=== PATIENT | male | born 1980 | race Caucasian/White ===

== ENCOUNTER 2017-03-13 09:00 | Inpatient (IN) | payer OTHER ==
--- NOTE | ~2017-03-13 | PN ---
Unit #: [id number] #: [id number] Patient: BRIANDA DEJESUS [id number] [facility] [address] [place] [address] [id number] I MR#: [id number] NAME: BRIANDA DEJESUS. ROOM: P177 Age: 36 Sex: M Admission Date: 03/13/2017 : 1980 Attending Physician: Yulia Caldwell M.D. Admitting Physician: Yulia Caldwell M.D. Primary Care Physician: Deann Doctor Not In System [facility] PROGRESS NOTES DATE OF SERVICE: 03/14/2017 SUBJECTIVE Mr. Dejesus is a 36-year-old white male who was seen today and chart was reviewed and case was discussed with the staff. He has been anxious, withdrawn, and rather seclusive to himself. Meanwhile, he has been cooperative with treatment recommendations and has been taking the medications and tolerating them fairly well with no reported side effects. MENTAL STATUS EXAMINATION Young white male who was casually dressed with fair personal hygiene, appears to be in distress and discomfort. He was awake and alert with impaired attention and concentration. His mood was anxious with a congruent affect. He denies any suicidal or homicidal ideations. His insight and judgment remain slightly impaired. TREATMENT PLAN 1. We will continue him on his current treatment protocol. We will monitor his response to the medications and make further adjustments as needed. 2. We will continue to follow up. Dictated by... Ana Alamo/cristy TD: 03/14/2017 22:18 JOB #: [id number] [facility] PROGRESS NOTES Page 1 of 1 X Yulia Caldwell MD PROGRESS NOTE
--- NOTE | ~2017-03-13 | PN ---
Unit #: [id number] #: [id number] Patient: BRIANDA DEJESUS [id number] [facility] [address] [place] [address] [id number] I MR#: [id number] NAME: BRIANDA DEJESUS ROOM: P1 Age: 36 Sex: M Admission Date: 03/13/2017 : 1980 Attending Physician: Yulia Caldwell M.D. Admitting Physician: Yulia Caldwell M.D. Primary Care Physician: Generic Doctor Not In System [facility] PROGRESS NOTES DATE 03/13/2017 DISCUSSION Mr. Dejesus is a 36-year-old white male with substance abuse and mood disorder who was seen today and chart was (1) case was discussed with the staff. He was seen to be anxious, withdrawn, in no distress or discomfort. Dictated by... Ana Alamo/jenna TD: 03/14/2017 23:06 JOB #: [id number] [facility] PROGRESS NOTES Page 1 of 1 X Yulia Caldwell MD PROGRESS NOTE
--- NOTE | ~2017-03-13 | HP ---
Unit #: [id number] #: [id number] Patient: BRIANDA DEJESUS [id number] [facility] [place] [address] [id number] MR#: [id number] NAME: BRIANDA DEJESUS. ROOM: [facility] Age: 36 Sex: M Admission Date: 03/13/2017 : 1980 Attending Physician: Yulia Caldwell M.D. Admitting Physician: Yulia Caldwell M.D. Primary Care Physician: Generic Doctor Not In System HISTORY AND PHYSICAL HISTORY OF PRESENT ILLNESS Brianda is a 89 year old admitted to [facility] because of his opioid abuse. PAST MEDICAL HISTORY 1. Long history of opioid abuse to include snorting heroin and Suboxone. 2. Asthma. PAST SURGICAL HISTORY Nothing reported. ALLERGIES Klonopin, lactose, Cipro. SOCIAL HISTORY Smokes one pack per day. Drinks alcohol on occasion has a history of poly illicit substance abuse. FAMILY HISTORY Medically noncontributory. REVIEW OF SYSTEMS CONSTITUTIONAL: No fever or chills. HEENT: Denies any sore throat, ear pain or runny nose. CARDIOVASCULAR: Denies chest pain, irregular heart rhythm or palpitations. CHEST: Denies shortness of breath or cough. No hemoptysis. GASTROINTESTINAL: Denies nausea, vomiting, diarrhea or chronic constipation. ENDOCRINE: Denies history of increased thirst or urination. No recent significant weight loss or gain. GENITOURINARY: Denies dysuria, frequency, or hematuria. SKIN: Denies any rashes. HEMATOLOGIC: Denies history of increased bleeding or bruising. MUSCULOSKELETAL: Denies any hot, swollen joints. No generalized muscle pain. NEUROLOGIC: Denies problems with vision or speech. No frequent, severe headaches. No numbness, tingling or weakness in any extremities. Denies loss of bladder or bowel control. CURRENT MEDICATIONS Detox protocol PHYSICAL EXAMINATION Unit #: [id number] #: [id number] Patient: BRIANDA DEJESUS GENERAL: Alert, well-nourished, in no apparent distress. VITAL SIGNS: Blood pressure 110/66, heart rate 88, respirations 16, temperature 98.6. WEIGHT: 165 pounds. HEIGHT: 5'8". SKIN: Warm and dry without rash or lesion. HEENT: Normocephalic. TMs not viewed. Oral and nasal passages clear. Conjunctivae clear. Pupils equal, round and reactive to light and accommodation. Extraocular movements intact. NECK: Supple without lymphadenopathy or thyromegaly. HEART: Regular rate and rhythm without murmur. LUNGS: Clear. ABDOMEN: Soft, nontender. : Not done. EXTREMITIES: No evidence of cyanosis, clubbing or edema. Moves all extremities without focal deficit. NEUROLOGICAL: Grossly within normal limits. Cranial Nerves: II: Visual kidd are intact. III, IV AND : Extraocular movements are intact. Pupils are equal, round and reactive to light. V: Facial sensation is grossly normal. VII: Facial movements and expression are normal. VIII: Auditory acuity grossly intact. IX, X: Uvula is midline. Phonation is normal. XI: Patient shrugs shoulders and turns head normally. XII: Tongue protrudes in the midline. Sensory and Motor Function: Sensory and motor sensation is grossly normal. Motor: moves all extremities well. Coordination: Gait is normal. Deep Tendon Reflexes: Intact. IMPRESSION Psychiatric admission RECOMMENDATIONS PSYCHIATRIC: Per psychiatrist. MEDICAL: I see no contraindications to participating in facility's activities. MEDICAL PROGNOSIS Good. MEDICAL CONDITION Stable. Dictated by... [facility] Ryan[facility]enni. for Ana Bautista/kayden TD: 03/14/2017 23:25 JOB #: [id number] Unit #: [id number] #: [id number] Patient: BRIANDA DEJESUS HISTORY AND PHYSICAL Page 1 of 1 X Lurdes Roberts X HISTORY AND PHYSICAL
--- NOTE | ~2017-03-13 | DS ---
Unit #: [id number] #: [id number] [facility] [id number] [facility] [address] [place] [address] [id number] I MR#: [id number] NAME: BRIANDA DEJESUS. ROOM: P177 Age: 36 Sex: M Admission Date: 03/13/2017 : 1980 Discharge Date: 03/17/2017 Attending Physician: Yulia Caldwell M.D. Primary Care Physician: Generic Doctor Not In System DISCHARGE SUMMARY IDENTIFYING DATA Mr. Dejesus is a 36-year-old white male, who is a resident of [place], [place], and was self-referred to the hospital on voluntary basis. DISCHARGE DIAGNOSES Psychiatric: Opioid dependence, moderate and acute withdrawals; opioid-induced mood disorder. Medical: Asthma. Stressors: Moderate psychosocial stressors. HISTORY OF PRESENT ILLNESS Please see initial psychiatric evaluation for details. PAST PSYCHIATRIC HISTORY Please see initial psychiatric evaluation for details. PAST MEDICAL HISTORY Please see initial psychiatric evaluation for details. HOSPITAL COURSE The [facility] and was oriented to the hospital environment. Routine p.r.n. medications were initiated, and he was started back on his home medications and detox protocol for opioids was initiated as well he was closely monitored. He was initially seen to be anxious, withdrawn, restless, distress and discomfort as he was going through detox; however, he was able to come out of the detox without any complications and was pushing and demanding to leave stating that he is feeling just fine and he needs to go home and see his voice and was denying any suicidal ideations, intent, or plan, and was not seen to be danger to self or anyone else, and was not meeting criteria for further inpatient psychiatric hospitalization and as such, it was decided that he will be discharged home and will continue treatment on an outpatient basis. DISCHARGE MEDICATIONS None. DISCHARGE CONDITION Stable. Unit #: [id number] #: [id number] Patient: BRIANDA DEJESUS PROGNOSIS Guarded. Dictated by... Ana Alamo/carol TD: 03/17/2017 06:22 JOB #: [id number] DISCHARGE SUMMARY Page 1 of 1 X Yulia Caldwell MD DISCHARGE SUMMARY
--- NOTE | ~2017-03-13 | PN ---
Unit #: [id number] #: [id number] Patient: BRIANDA DEJESUS [id number] [facility] [address] [place] [address] [id number] I MR#: [id number] NAME: BRIANDA DEJESUS. ROOM: P177 Age: 36 Sex: M Admission Date: 03/13/2017 : 1980 Attending Physician: Yulia Caldwell M.D. Admitting Physician: Yulia Caldwell M.D. Primary Care Physician: Deann Doctor Not In System [facility] PROGRESS NOTES DATE March 16, 2017 DISCUSSION Mr. Dejesus is a 36-year-old white male, who was seen today and chart was reviewed and the case was discussed with the staff. He has been anxious, withdrawn, and seclusive to himself. Meanwhile, he has been cooperative with the treatment recommendations and he has been taking the medications and tolerating them fairly well with no reported side effects. MENTAL STATUS EXAMINATION Young white male, who was casually dressed with fair personal hygiene and appears to be in no acute distress or discomfort. He was awake and alert on interaction with intact orientation. His mood is anxious with a congruent affect. He denies any suicidal or homicidal ideations. His insight and judgment remain slightly impaired. TREATMENT PLAN 1. We will continue him on his current medications and treatment protocol, and will monitor his response and will consider discharge planning tomorrow. 2. We will continue to followup. Dictated by... Ana Alamo/chery TD: 03/17/2017 05:14 JOB #: [id number] Unit #: [id number] #: [id number] Patient: BRIANDA DEJESUS [facility] PROGRESS NOT[facility] Page 1 of 1 X Yulia Caldwell MD X PROGRESS NOTE
--- NOTE | ~2017-03-13 | PN ---
Unit #: [id number] #: [id number] Patient: BRIANDA DEJESUS [id number] [facility] [address] [place] [address] [id number] I MR#: [id number] NAME: BRIANDA DEJESUS. ROOM: P177 Age: 36 Sex: M Admission Date: 03/13/2017 : 1980 Attending Physician: Yulia Caldwell M.D. Admitting Physician: Yulia Caldwell M.D. Primary Care Physician: Deann Doctor Not In System [facility] PROGRESS NOTES DATE March 15, 2017 DISCUSSION Mr. Dejesus is a 36-year-old, white male with substance abuse and mood disorder who was seen today and chart was reviewed. The case was discussed with the staff. He has been anxious, withdrawn, and seclusive to himself and describes himself to be (1) distress or discomfort as his (2) . Meanwhile, he has been taking medications and tolerating them fairly well with no reported side effects. MENTAL STATUS EXAMINATION Young white male who was casually dressed with a fair personal hygiene and appears to be in no acute distress or discomfort. He was awake and alert on interaction with intact orientation. His mood is anxious with a congruent affect. He denies any suicidal or homicidal ideation. His insight and judgement remain slightly impaired. TREATMENT PLAN 1. Continue his current treatment protocol. Will monitor his response and make further adjustments as needed. 2. We will continue to follow up. Dictated by... Ana Alamo/caitlin TD: 03/16/2017 12:21 JOB #: [id number] Unit #: [id number] #: [id number] Patient: BRIANDA DEJESUS [facility] PROGRESS NOTES Page 1 of 1 X Yulia Caldwell MD PROGRESS NOTE
--- NOTE | ~2017-03-13 | PA ---
Unit #: [id number] #: [id number] Patient: BRIANDA DEJESUS [id number] [facility] [address] [place] [address] [id number] MR#: [id number] NAME: BRIANDA DEJESUS. ROOM: P177 Age: 36 Sex: M Admission Date: 03/13/2017 : 1980 Date of Assessment: 03/13/2017 Attending Physician: Yulia Caldwell M.D. Admitting Physician: Yulia Caldwell M.D. Primary Care Physician: Generic Doctor Not In System PSYCHIATRIC ASSESSMENT DATE OF SERVICE 03/13/2017. IDENTIFYING DATA Mr. Dejesus is a 36-year-old white male, who is a resident of [place], [place], and was self-referred to the hospital on a voluntary basis. CHIEF COMPLAINT "I'm trying to detox from opioids." HISTORY OF PRESENT ILLNESS Mr. Dejesus is a 36-year-old white male with history of substance abuse and dependence, who was self-referred to the hospital stating that he has been trying to detox on opioids and has been having significant withdrawal symptoms, stating he has been experiencing hot and cold flashes, restlessness, muscles cannot stay still, runny nose, watery eyes, diarrhea, "it's worse than this morning." He reports that he has been using heroin for year with daily use for the last few months and has been using 5 to 7 days a week and his last use was a day before coming to the hospital and reports he also has been using some Percocet and increasing depression, anxiety, irritability, restlessness, feelings of hopelessness and helplessness, but denies any suicidal ideations, intent, or plan. SUBSTANCE ABUSE HISTORY The patient reports occasional experimentation with alcohol, but opioids, particularly heroin has been his drug of choice. PAST PSYCHIATRIC HISTORY The patient has not had any prior inpatient or outpatient psychiatric treatment. Review of the medical records indicate currently he is not active in any treatment program, is not seeing a psychiatrist, and is not taking any psychotropic medications. PAST MEDICAL HISTORY Asthma. ALLERGIES Ciprofloxacin and Klonopin. PERSONAL AND SOCIAL HISTORY A 36-year-old white male, who reports that he is single, unemployed, and lives with a friend and has poor social support system. Unit #: [id number] #: [id number] Patient: BRIANDA DEJESUS MENTAL STATUS EXAMINATION Young white male who was casually dressed with fair personal hygiene, appears to be in no acute distress or discomfort. He was awake and alert on interaction with intact orientation to time, place, and person. His mood was anxious and depressed with a congruent affect. His speech was slow and restricted in content. His thought processes were disorganized with some looseness of associations. He denies any suicidal or homicidal ideations and also denies any auditory or visual hallucinations. His insight and judgment remain significantly impaired. DIAGNOSTIC IMPRESSION Psychiatric: Opioid dependence, moderate and acute withdrawals; opioid-induced mood disorder. Medical: Asthma. Stressors: Moderate psychosocial stressors. TREATMENT PLAN 1. The patient has presented with history of substance abuse and mood disorder, and has been decompensating and will need inpatient hospitalization for detoxification, safety, and stabilization. We will start him on detox protocol. We will closely monitor for any worsening withdrawal symptoms. 2. Supportive therapy was provided to the patient. 3. Safe, structured, and nourishing environment will be provided. ESTIMATED LENGTH OF STAY 5 to 7 days. ABILITY TO HELP SELF Limited. WILLINGNESS TO HELP SELF The patient appears to be willing to help self. STRENGTHS 1. Communicative. 2. Cooperative. PROBLEMS 1. Chronic chemical dependency. 2. Poor social support system. DISCHARGE CRITERIA This will be contingent upon the patient's ability to go through detox without having any significant withdrawal symptoms as well as his ability to stay safe to himself, particularly after discharge from the hospital. Dictated by... Ana Alamo/cristy TD: 03/14/2017 06:33 JOB #: [id number] Unit #: [id number] #: [id number] Patient: BRIANDA DEJESUS PSYCHIATRIC ASSESSMENT Page 1 of 1 X Yulia Caldwell MD X PSYCHIATRIC ASSESSMENT
[2017-03-14 09:33] LABS: BASOPHIL% 0.3 % (0-2.5); EOSINOPHIL# 0.1 X10e3 (0-0.7); EOSINOPHIL% 1.9 % (0.0-7.0); HEMATOCRIT 43.2 % (38.0-50.0); HEMOGLOBIN 14.4 gm/dL (13.0-16.0); LYMPHOCYTE% 31.4 % (17.0-45.0); MEAN CELL VOLUME 88.3 FL (83-96); MEAN CORPUSCULAR HEMOGLOBIN 29.4 PG (28-34); MEAN CORPUSCULAR HGB CONC 33.2 g/dL (30-36); MEAN PLATELET VOLUME 8.3 FL (6.5-11.5); MONOCYTE# 0.4 X10e3 (0-1.0); NEUTROPHIL# 3.8 X10e3 (1.5-7.1); NEUTROPHIL% 59.4 % (40-75); PLATELET COUNT 280 X10e3 (140-420); RED BLOOD COUNT 4.89 X10e (3.90-5.60); RED CELL DISTRIBUTION WIDTH 14.2 % (11.0-15.5); WHITE BLOOD COUNT 6.3 X10e3 (4.0-10.5)
[2017-03-14 09:48] LABS: DIFF IND NO
[2017-03-14 10:05] LABS: ALBUMIN SERUM 3.5 g/dL (3.5-5.0); BILIRUBIN,TOTAL 0.5 mg/dL (0.2-2.0); BUN/CREATININE RATIO 11.25; CALCIUM SERUM 8.9 mg/dL (8.4-10.2); CREATININE SERUM 0.8 mg/dL (0.6-1.4); GLOM FILT RATE Estimated 115.8 mL/min (>60); POTASSIUM 4.2 mmol/L (3.5-5.1); PROTEIN TOTAL SERUM 6.1 g/dL (6.0-8.3)
== END 2017-03-17 09:35 | DRG 897 ==
LOC: P1E 17:30 → P2L 17:57 → P1E 18:03
PROVIDERS: Psychiatry & Neurology Psychiatry
PROC: HZ2ZZZZ Detoxification Services for Substance Abuse Treatment (ICD-10-PCS; principal; 2017-03-13)
DX: F11.23 Opioid dependence with withdrawal (principal); F11.24 Opioid dependence with opioid-induced mood disorder; J45.909 Unspecified asthma, uncomplicated; F17.210 Nicotine dependence, cigarettes, uncomplicated; Z88.1 Allergy status to other antibiotic agents; Z88.8 Allergy status to other drugs, medicaments and biological substances; Z91.011 Allergy to milk products
CPT/HCPCS: 80053; 85025; 86592